=== PATIENT | male | born 1990 | race American Indian/Alaskan Native ===

== ENCOUNTER 2022-01-26 10:36 | Outpatient (CLI) | payer OTHER ==
--- NOTE | 2022-01-26 11:48 | XRay Report ---
Right femur 4 views INDICATION: Fall FINDINGS: Large areas of calcification and posterior matter change overlying the right greater trocha nter. Right femoral head is well-seated in the acetabulum without acute nature. Mild degenerative justin nge in right hip. Postsurgical change in the lateral femoral condyle distally. Patellofemoral degener ative change with joint effusion. IMPRESSION: Post matter change with healing lung and right greater trochanter and right pelvis. Degenerative viveros ge in the right hip. Signer Name: Pavel Dorsey MD Signed: 01/26/2022 11:38 AM Workstation Name: [id number]
--- NOTE | 2022-01-26 11:52 | XRay Report ---
RIGHT KNEE 3 VIEWS INDICATION: RIGHT KLNEE PAIN. COMPARISON: None. IMPRESSION: Multiple orthopedic screws are present in the lateral femoral condyle indicating previou s surgery. There is suggestion of subtle healing fracture lines throughout the medial femoral condyl e, correlate with history. Mild degenerative changes are identified in the lateral compartment. Mild heterotopic calcifications are also identified lateral to the lateral femoral condyle. There are mil d degenerative changes in the patellofemoral space. Approximate 1.5 cm calcific density overlies the suprapatellar bursa on the lateral image which probably represents an intra-articular foreign body. S mall joint effusion is suspected. No acute osseous injury is identified. Signer Name: Eduin Kumar Jr, MD Signed: 01/26/2022 11:43 AM Workstation Name: [id number]
== END 2022-01-26 10:37 | disposition home or self-care (01) ==
LOC: XRAY 10:36
PROVIDERS: ATTEND Internal Medicine
DX: Z02.71 Encounter for disability determination (principal); M16.11 Unilateral primary osteoarthritis, right hip; M17.11 Unilateral primary osteoarthritis, right knee